=== PATIENT | female | born 1960 | race Caucasian/White ===

== ENCOUNTER 2020-11-06 00:25 | Inpatient (IN) ==
[2020-11-06] MEDS ORDERED: Naloxone 0.4 MG/ML INJ IVP PRN (00:55)
[2020-11-06] MEDS ORDERED: Ondansetron 4 MG/2 ML VIAL IVP PRN (00:55)
[2020-11-06] MEDS ORDERED: Perflutren Lipid Microsphere 1.3 ML in 0.9 % Sodium Chloride 8.7 ML IVP PRN (00:57)
[2020-11-06] MEDS ORDERED: *HR* Heparin 5,000 UNIT/ML VIAL IVP PRN ×2 (00:58)
[2020-11-06] MEDS ORDERED: Heparin 25,000UNIT/250ML 1/2NS 25,000 UNIT/250 ML IV.SOLN IVC SCH (01:00)
[2020-11-06] MEDS ORDERED: Dextrose Gel 15 GM/37.5 ML TUBE PO PRN ×2 (02:07)
[2020-11-06] MEDS ORDERED: *HR* Dextrose 50 % in Water (Vial) 50 ML VIAL IVP PRN (02:07)
[2020-11-06] MEDS ORDERED: D5% in Water 1,000 ML IVC PRN (02:07)
[2020-11-06 02:22] LABS: Basophils % 0.3 %; Eosinophils # 0.1 K/mcL (0.0-0.6); Eosinophils % 0.7 %; Hematocrit 36.4 % (35.3-44.9); Hemoglobin 12.1 g/dL (11.5-15.4); Immature Granulocytes % 0.5 % (0-4); Lymphocytes # 2.6 K/mcL (0.6-4.6); Lymphocytes % 18.9 %; Mean Corpuscular HGB Conc 33.2 g/dL (31.6-35.5); Mean Corpuscular Hemoglobin 29.5 pg (28.0-33.3); Mean Corpuscular Volume 88.8 fL (83.0-100.0); Mean Platelet Volume 9.9 fL (9.4-12.4); Monocytes # 1.2 K/mcL (0.0-1.3); Monocytes % 8.5 %; Neutrophils # 9.9 K/mcL (1.6-8.9); Platelet Count 249 K/mcL (140-400); Red Cell Distribution Width 12.7 % (11.5-14.5); Segmented Neutrophils % 71.1 %
[2020-11-06] MEDS: Insulin LISPRO 300 UNITS/3 ML VIAL SUBQ SCH ×5 (02:28→21:37)
[2020-11-06 02:30] LABS: Prothrombin Time 11.7 Seconds (9.4-12.1)
[2020-11-06 02:44] LABS: Alanine Aminotransferase 32 Units/L (7-52); Albumin 4.1 g/dL (3.5-5.7); Albumin/Globulin Ratio 1.5 (1.1-2.2); Alkaline Phosphatase 81 Units/L (34-104); Aspartate Amino Transferase 24 Units/L (13-39); BUN/Creatinine Ratio 20 (6-26); Bilirubin,Total 0.4 mg/dL (0.3-1.0); Blood Urea Nitrogen 15 mg/dL (6-20); Calcium 8.9 mg/dL (8.6-10.3); Carbon Dioxide 21 mEq/L (23-29); Chloride 94 mEq/L (98-107); Chol/HDL Ratio 4.9 (0-4.9); Cholesterol 232 mg/dL (< 200); Globulin 2.7 g/dL (2.4-3.5); Glucose 162 mg/dL (70-105); HDL Cholesterol 47 mg/dL (40-59); LDL Cholesterol,Calculated 122 mg/dL (< 100); Magnesium 1.9 mg/dL (1.6-2.6); Osmolality,Calculated 268 (280-300); Potassium 4.2 mEq/L (3.5-5.1); Sodium 127 mEq/L (136-145); Total Protein 6.8 g/dL (6.4-8.9); Triglycerides 316 mg/dL (< 150); eGFR For African Americans > 60 (> 60); eGFR For Non-African Americans > 60 (> 60)
[2020-11-06 09:11] LABS: Estimated Average Glucose 163 mg/dl; Hemoglobin A1C 7.3 %
[2020-11-06] MEDS ORDERED: Aspirin Enteric Coated 81 MG Tablet PO SCH (10:15)
[2020-11-06] MEDS: carvediloL 6.25 MG TABLET PO SCH ×2 (12:23→18:59)
[2020-11-06 13:42] LABS: BUN/Creatinine Ratio 20 (6-26); Blood Urea Nitrogen 14 mg/dL (6-20); Calcium 9.1 mg/dL (8.6-10.3); Carbon Dioxide 23 mEq/L (23-29); Chloride 99 mEq/L (98-107); Glucose 133 mg/dL (70-105); Osmolality,Calculated 278 (280-300); Potassium 4.1 mEq/L (3.5-5.1); Sodium 133 mEq/L (136-145); Troponin I 1.98 ng/mL (< 0.04); eGFR For African Americans > 60 (> 60); eGFR For Non-African Americans > 60 (> 60)
[2020-11-06] MEDS ORDERED: *HR* Heparin 10,000 UNIT/10 ML VIAL ONE (14:59)
[2020-11-06] MEDS ORDERED: ISOVUE-370 200 ML INFUS..BTL ONE (14:59)
[2020-11-06] MEDS ORDERED: *HR* Midazolam HCl 2 MG/2 ML VIAL ONE ×2 (14:59→15:52)
[2020-11-06] MEDS ORDERED: *HR* FentaNYL (PF) 100 MCG/2 ML VIAL ONE (14:59)
[2020-11-06] MEDS ORDERED: 0.9 % Sodium Chloride 1,000 ML ONE ×2 (14:59→15:01)
[2020-11-06] MEDS ORDERED: Heparin 1,000 UNITS/500 mL 500 ML ONE (14:59)
[2020-11-06] MEDS ORDERED: Nitroglycerin 1,000 MCG/5 ML VIAL IV ONE (15:00)
[2020-11-06] MEDS ORDERED: *HR* Bivalirudin 250 MG VIAL IVC ONE (15:42)
[2020-11-06] MEDS ORDERED: *HR* Ticagrelor 90 MG TABLET ONE (15:44)
[2020-11-06] MEDS ORDERED: Nitroglycerin 0.4 MG TAB.SUBL SL PRN (16:16)
[2020-11-06] MEDS: rOPINIRole 0.25 MG TABLET PO SCH (20:13)
[2020-11-06] MEDS: Baclofen 10 MG TABLET PO SCH (20:13)
[2020-11-06] MEDS ORDERED: carvediloL 25 MG TABLET PO SCH (21:00)
[2020-11-06] MEDS ORDERED: *HR* Ticagrelor 90 MG TABLET PO SCH (21:00)
[2020-11-07 05:02] LABS: Bacteria,Urine Few per hpf (None-Few); Bilirubin,Urine Negative (Negative); Blood,Urine Negative (Negative); Clarity,Urine Clear (Clear); Color,Urine Light-Yellow (Yellow); Glucose,Urine (UA) 50 mg/dL (Normal); Ketones,Urine Negative (Negative); Leukocyte Esterase,Urine Negative (Negative); Mucus,Urine Few per lpf (None-Few); Nitrite,Urine Negative (Negative); PH,Urine 6.5 pH Units (5.0-8.0); Protein,Urine Negative (Neg-Trace); RBC,Urine 0-3 per hpf (0-3); Specific Gravity,Urine 1.029 (1.010-1.025); Squamous Epithelial Cell,Urine Few per hpf (None-Few); Urobilinogen,Urine Normal (Normal); WBC,Urine 0-3 per hpf (0-3)
[2020-11-07 05:55] LABS: Basophils # 0.1 K/mcL (0.0-0.2); Basophils % 0.5 %; Eosinophils # 0.3 K/mcL (0.0-0.6); Eosinophils % 2.6 %; Hematocrit 36.1 % (35.3-44.9); Immature Granulocytes % 0.3 % (0-4); Mean Corpuscular HGB Conc 33.2 g/dL (31.6-35.5); Mean Corpuscular Hemoglobin 30.2 pg (28.0-33.3); Mean Corpuscular Volume 90.9 fL (83.0-100.0); Mean Platelet Volume 9.7 fL (9.4-12.4); Monocytes # 0.9 K/mcL (0.0-1.3); Monocytes % 9.5 %; Neutrophils # 6.6 K/mcL (1.6-8.9); Platelet Count 229 K/mcL (140-400); Red Blood Count 3.97 M/mcL (3.82-4.97); Red Cell Distribution Width 13.1 % (11.5-14.5); Segmented Neutrophils % 67.1 %; White Blood Count 9.8 K/mcL (4.3-11.1)
[2020-11-07 06:15] LABS: BUN/Creatinine Ratio 18 (6-26); Blood Urea Nitrogen 14 mg/dL (6-20); Calcium 8.8 mg/dL (8.6-10.3); Carbon Dioxide 25 mEq/L (23-29); Chloride 99 mEq/L (98-107); Glucose 137 mg/dL (70-105); Magnesium 2.1 mg/dL (1.6-2.6); Osmolality,Calculated 277 (280-300); Sodium 132 mEq/L (136-145); eGFR For African Americans > 60 (> 60); eGFR For Non-African Americans > 60 (> 60)
[2020-11-07] MEDS: BuPROPion SR (12 HR) 150 MG TABLET PO SCH (10:09)
[2020-11-07] MEDS: Baclofen 10 MG TABLET PO SCH ×2 (10:09→20:10)
[2020-11-07] MEDS: Cyanocobalamin (B-12) 1,000 MCG TABLET PO SCH (10:10)
[2020-11-07] MEDS: rOPINIRole 0.25 MG TABLET PO SCH ×2 (10:10→20:10)
[2020-11-07] MEDS: Cholecalciferol (D-3) 1,000 UNIT (25MCG) TABLET PO SCH (10:10)
[2020-11-07] MEDS: carvediloL 6.25 MG TABLET PO SCH (10:10)
[2020-11-07] MEDS: *HR* Ticagrelor 90 MG TABLET PO SCH ×2 (10:10→20:10)
[2020-11-07] MEDS: Aspirin Enteric Coated 81 MG Tablet PO SCH (10:10)
[2020-11-07] MEDS: Insulin LISPRO 300 UNITS/3 ML VIAL SUBQ SCH ×4 (10:11→20:11)
[2020-11-07] MEDS: carvediloL 25 MG TABLET PO SCH (17:49)
[2020-11-07] MEDS: *HR* Heparin 5,000 UNIT/ML VIAL SQ SCH ×2 (17:49→20:11)
[2020-11-07] MEDS: Acetaminophen 325 MG TABLET PO PRN (20:23)
[2020-11-08] MEDS: *HR* Heparin 5,000 UNIT/ML VIAL SQ SCH ×3 (05:40→21:08)
[2020-11-08 06:37] LABS: Hematocrit 35.7 % (35.3-44.9); Hemoglobin 11.7 g/dL (11.5-15.4)
[2020-11-08 06:54] LABS: BUN/Creatinine Ratio 18 (6-26); Blood Urea Nitrogen 14 mg/dL (6-20); Carbon Dioxide 27 mEq/L (23-29); Chloride 99 mEq/L (98-107); Glucose 161 mg/dL (70-105); Magnesium 2.1 mg/dL (1.6-2.6); Osmolality,Calculated 282 (280-300); Potassium 4.2 mEq/L (3.5-5.1); Sodium 134 mEq/L (136-145); eGFR For African Americans > 60 (> 60); eGFR For Non-African Americans > 60 (> 60)
[2020-11-08] MEDS: Baclofen 10 MG TABLET PO SCH ×2 (08:07→21:07)
[2020-11-08] MEDS: Cholecalciferol (D-3) 1,000 UNIT (25MCG) TABLET PO SCH (08:07)
[2020-11-08] MEDS: Aspirin Enteric Coated 81 MG Tablet PO SCH (08:07)
[2020-11-08] MEDS: *HR* Ticagrelor 90 MG TABLET PO SCH ×2 (08:07→21:08)
[2020-11-08] MEDS: BuPROPion SR (12 HR) 150 MG TABLET PO SCH (08:07)
[2020-11-08] MEDS: rOPINIRole 0.25 MG TABLET PO SCH ×2 (08:07→21:07)
[2020-11-08] MEDS: Cyanocobalamin (B-12) 1,000 MCG TABLET PO SCH (08:07)
[2020-11-08] MEDS: carvediloL 25 MG TABLET PO SCH ×2 (08:08→17:15)
[2020-11-08] MEDS: Insulin LISPRO 300 UNITS/3 ML VIAL SUBQ SCH ×4 (08:08→21:08)
[2020-11-08] MEDS ORDERED: *HR* Midazolam HCl 2 MG/2 ML VIAL ONE (11:38)
[2020-11-08] MEDS ORDERED: *HR* FentaNYL (PF) 100 MCG/2 ML VIAL ONE (11:39)
[2020-11-08] MEDS ORDERED: Heparin 1,000 UNITS/500 mL 500 ML ONE ×2 (11:39→13:01)
[2020-11-08] MEDS ORDERED: Nitroglycerin 1,000 MCG/5 ML VIAL IV ONE (11:39)
[2020-11-08] MEDS ORDERED: 0.9 % Sodium Chloride 2,000 ML ONE (11:39)
[2020-11-08] MEDS ORDERED: *HR* Heparin 10,000 UNIT/10 ML VIAL ONE (11:39)
[2020-11-08] MEDS ORDERED: ISOVUE-370 200 ML INFUS..BTL ONE ×2 (11:39→13:01)
[2020-11-08] MEDS ORDERED: 0.9 % Sodium Chloride 1,000 ML IVC SCH (13:30)
[2020-11-08] MEDS: Acetaminophen 325 MG TABLET PO PRN (21:07)
[2020-11-09] MEDS: Acetaminophen 325 MG TABLET PO PRN (02:54)
[2020-11-09 05:48] LABS: Hematocrit 33.7 % (35.3-44.9); Hemoglobin 11.1 g/dL (11.5-15.4); Mean Corpuscular HGB Conc 32.9 g/dL (31.6-35.5); Mean Corpuscular Hemoglobin 30.2 pg (28.0-33.3); Mean Corpuscular Volume 91.6 fL (83.0-100.0); Mean Platelet Volume 10.3 fL (9.4-12.4); Platelet Count 213 K/mcL (140-400); Red Blood Count 3.68 M/mcL (3.82-4.97); Red Cell Distribution Width 13.1 % (11.5-14.5); White Blood Count 7.2 K/mcL (4.3-11.1)
[2020-11-09] MEDS: *HR* Heparin 5,000 UNIT/ML VIAL SQ SCH (05:51)
[2020-11-09 06:06] LABS: BUN/Creatinine Ratio 15 (6-26); Blood Urea Nitrogen 11 mg/dL (6-20); Calcium 8.9 mg/dL (8.6-10.3); Carbon Dioxide 23 mEq/L (23-29); Chloride 101 mEq/L (98-107); Glucose 162 mg/dL (70-105); Osmolality,Calculated 277 (280-300); Potassium 4.1 mEq/L (3.5-5.1); Sodium 132 mEq/L (136-145); eGFR For African Americans > 60 (> 60); eGFR For Non-African Americans > 60 (> 60)
[2020-11-09] MEDS: *HR* Ticagrelor 90 MG TABLET PO SCH (07:27)
[2020-11-09] MEDS: Aspirin Enteric Coated 81 MG Tablet PO SCH (07:27)
[2020-11-09] MEDS: Cyanocobalamin (B-12) 1,000 MCG TABLET PO SCH (07:27)
[2020-11-09] MEDS: Cholecalciferol (D-3) 1,000 UNIT (25MCG) TABLET PO SCH (07:27)
[2020-11-09] MEDS: Baclofen 10 MG TABLET PO SCH (07:27)
[2020-11-09] MEDS: carvediloL 25 MG TABLET PO SCH (07:27)
[2020-11-09] MEDS: rOPINIRole 0.25 MG TABLET PO SCH (07:28)
[2020-11-09] MEDS: Insulin LISPRO 300 UNITS/3 ML VIAL SUBQ SCH ×2 (07:28→11:23)
[2020-11-09] MEDS: BuPROPion SR (12 HR) 150 MG TABLET PO SCH (07:28)
[2020-11-09 11:02] VITALS: BP 126/70
== END 2020-11-09 11:30 | disposition home or self-care (01) | DRG 246 ==
LOC: 2NENU → SUATTDRO 00:25
PROVIDERS: ADMIT Student in an Organized Health Care Education/Training Program; ATTEND Internal Medicine